=== PATIENT | male | born 1990 | race Two or more races ===

== ENCOUNTER 2019-09-10 04:07 | Emergency (ER) | payer SELFPAY ==
[~2019-09-10] VITALS: Ht 177.8 cm; Wt 85.0 kg
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
--- NOTE | 2019-09-10 06:54 | NUR ---
Report given to AYDEE Tay.
--- NOTE | 2019-09-10 06:54 | NUR ---
RECEIVED REPORT FROM LUIS BAJWA AND [facility]
--- NOTE | 2019-09-10 07:36 | NUR ---
PT SLEEPING, RESP EVEN AND UNLABORED
[2019-09-10 07:40] VITALS: BP 93/45
--- NOTE | 2019-09-10 08:30 | NUR ---
ambulated without assistance with tech around ER. to be discharged
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
== END 2019-09-10 09:03 | disposition home or self-care (01) ==
LOC: ED 08:57
DX: S00.33XA Contusion of nose, initial encounter (principal); S60.413A Abrasion of left middle finger, initial encounter; R04.0 Epistaxis; F10.129 Alcohol abuse with intoxication, unspecified; W19.XXXA Unspecified fall, initial encounter; Y93.89 Activity, other specified; Y92.89 Other specified places as the place of occurrence of the external cause; Y99.8 Other external cause status; Y90.9 Presence of alcohol in blood, level not specified
CPT/HCPCS: 70450; 72125; 99284